=== PATIENT | female | born 1985 | race Caucasian/White ===

== ENCOUNTER 2023-07-07 09:21 | Outpatient (CLI) | payer OTHER | END 2023-07-07 09:23 | disposition home or self-care (01) | LOC: RX STUDY 09:21 | DX: N70.11 Chronic salpingitis (principal) ==

== ENCOUNTER 2024-10-27 09:47 | Outpatient (CLI) | payer OTHER | END 2024-10-27 09:51 | disposition home or self-care (01) | LOC: SONOGRAMA 09:47 | PROVIDERS: ATTEND Obstetrics & Gynecology Gynecology | DX: N91.1 Secondary amenorrhea (principal) ==

== ENCOUNTER → 2024-10-27 10:31 | Outpatient (CLI) | payer OTHER | END | disposition home or self-care (01) | LOC: LAB 10:31 | PROVIDERS: ATTEND Obstetrics & Gynecology Gynecology | DX: N91.1 Secondary amenorrhea (principal) ==